=== PATIENT | male | born 1995 | race Hispanic/Latino ===

== ENCOUNTER 2020-09-11 09:27 | Day surgery (SDC) | payer OTHER ==
[2020-09-10 10:33] VITALS: BMI 22.8
[2020-09-11] MEDS ORDERED: AFRIN NASAL MIST 15 ML BOT ONE ×3 (10:13→10:45)
[2020-09-11] MEDS ORDERED: Lidocaine 2% w/Epinephrine 1:200K 20 ML VIAL ONE (10:43)
[2020-09-11] MEDS ORDERED: Fentanyl 100 MCG/2 ML VIAL ONE ×2 (10:49→12:14)
[2020-09-11] MEDS ORDERED: Midazolam HCl 2 mg/2 ml Vial ONE (10:49)
[2020-09-11] MEDS ORDERED: SUGAMMADEX SODIUM 500 MG/5 ML VIAL ONE (11:02)
[2020-09-11] MEDS ORDERED: Lidocaine 1% PF 5 ML VIAL ONE (11:52)
[2020-09-11] MEDS ORDERED: Rocuronium Bromide 10 MG/ML (10ML VIAL) ONE (11:52)
[2020-09-11] MEDS ORDERED: Dexamethasone 20 MG/5 ML VIAL ONE (11:52)
[2020-09-11] MEDS ORDERED: Ondansetron PF 4 MG/2 ML Vial ONE (11:52)
[2020-09-11] MEDS ORDERED: PROPOFOL 200 MG/20 ML VIAL ONE (11:52)
[2020-09-11] MEDS ORDERED: hydrALAZINE 20 MG/ML VIAL ONE (12:23)
--- NOTE | 2020-09-12 07:43 | OP ---
DATE OF PROCEDURE: 09/11/2020 PREOPERATIVE DIAGNOSES: 1. Nasal septal deviation. 2. Bilateral inferior turbinate hypertrophy. 3. Nasal obstruction. 4. Bilateral closed nasal fracture. 5. Bilateral nasal wall collapse. POSTOPERATIVE DIAGNOSES: 1. Nasal septal deviation. 2. Bilateral inferior turbinate hypertrophy. 3. Nasal obstruction. 4. Bilateral closed nasal fracture. 5. Bilateral nasal wall collapse. PROCEDURES PERFORMED: 1. Nasoseptoplasty. 2. Bilateral inferior turbinate submucosal resection. 3. Bilateral repair of lateral nasal wall collapse. ESTIMATED BLOOD LOSS: 20 mL. ANESTHESIA: GETA. COMPLICATIONS: None. PROCEDURE IN DETAIL: Patient was taken to the operating room and placed supine on the table. General endotracheal anesthesia was obtained by the anesthesia staff. Then 1% lidocaine with 1:100,000 epinephrine was injected into the nasal septum as well as the inferior turbinates. The patient was prepped and draped in standard surgical fashion. The Afrin pledgets were then removed. A Billy incision was made on the left nasal septum. Submucoperichondrial dissection was performed bilaterally of the deviated portions of the septum, which included the maxillary crest and the crest deviation, as well as the mid portion of the septum. Cartilage and bony deviation was removed, leaving a generous caudal and dorsal strut. Any straight pieces of cartilage were then placed within the cartilage press, pressed, straightened, and then placed between the mucoperichondrial flaps, which were then closed using a 4-0 gut stitch. The inferior turbinates were then punctured with the submucosal Coblation machine, and 3 separate coblations were delivered to the anterior inferior portion of the inferior turbinates. Following this, the nasal cavity was irrigated. All debris was removed. An orogastric tube was placed. Gastric contents and [place] splints were then placed in the nasal cavity and sutured with a 3-0 silk stitch. Following this, [place] splints were placed within the nasal cavity and secured with a silk stitch. Following this, the transcartilaginous approach to the lateral nasal wall was made with a stab incision and the periosteum overlying the nasal bones were then elevated. A graft/implant was then placed overlying the nasal bones laterally and extending inferiorly to be positioned medial to the lower lateral cartilages supporting the lower lateral wall collapse bilaterally. The patient tolerated the procedure well. Job ID: [id number]
== END 2020-09-11 14:50 | disposition home or self-care (01) ==
LOC: SDC 09:27
PROVIDERS: ATTEND Otolaryngology Plastic Surgery within the Head & Neck
PROC: 09BL8ZZ Excision of Nasal Turbinate, Via Natural or Artificial Opening Endoscopic (ICD-10-PCS; principal; 2020-09-11)
PROC: 09BM8ZZ Excision of Nasal Septum, Via Natural or Artificial Opening Endoscopic (ICD-10-PCS; principal; 2020-09-11)
DX: J34.2 Deviated nasal septum (principal); J34.3 Hypertrophy of nasal turbinates; J34.89 Other specified disorders of nose and nasal sinuses; S02.2XXA Fracture of nasal bones, initial encounter for closed fracture; Z88.1 Allergy status to other antibiotic agents
CPT/HCPCS: J0360; J1100; J2250; J2405; J2704; J3010